=== PATIENT | female | born 1955 | race Caucasian/White ===

== ENCOUNTER → 2021-09-12 09:20 | Outpatient (CLI) | payer OTHER, SELFPAY ==
[2021-09-12 20:19] LABS: Add Manual Diff / Slide Review NO; Basophils Absolute Auto 100 /uL (0-100); Basophils Percent Auto 1.9 % (0-2); Eosinophils Absolute Auto 300 /uL (0-450); Eosinophils Percent Auto 6.9 % (2-4); Hematocrit 37.9 % (36-46); Hemoglobin 12.8 g/dL (12.0-16.0); Lymphocytes Absolute Auto 1500 /uL (1100-4500); Lymphocytes Percent Auto 33.2 % (25-40); Mean Corpuscular HGB Conc 33.7 % (30-36); Mean Corpuscular Hemoglobin 31.6 PG (26-34); Mean Corpuscular Volume 93.6 fL (80-100); Monocytes Absolute Auto 300 /uL (0-900); Monocytes Percent Auto 6.7 % (3-14); Neutrophils Absolute Auto 2300 /uL (1500-7000); Neutrophils Percent Auto 51.3 % (50-75); Platelet Count 168 X10^3/uL (150-400); Red Blood Cell Count 4.05 X10^6/uL (4.0-5.2); Red Cell Distribution Width 15.1 % (11.6-14.8); White Blood Cell Count 4.5 X10^3/uL (4.5-11.0)
[2021-09-12 20:26] LABS: Hemoglobin A1C% w Est Avg Glu 5.3 % (4.0-6.0)
[2021-09-12 20:56] LABS: TSH w/ Reflex to FT4 1.54 uIU/mL (0.47-4.68)
[2021-09-12 23:19] LABS: Alanine Aminotransferase 38 IU/L (<35); Albumin 4.1 g/dL (3.5-5.0); Albumin Globulin Ratio 1.9 (1.0-2.8); Alkaline Phosphatase 79 U/L (38-126); Aspartate Aminotransferase 35 IU/L (14-36); Bilirubin Total 1.1 mg/dL (0.2-1.3); Blood Urea Nitrogen 17 mg/dL (7-17); Calcium 9.3 mg/dL (8.4-10.2); Carbon Dioxide 33 mmol/L (22-32); Chloride 106 mmol/L (98-107); Estimated Glomerular Filt Rate > 60 mL/min (>60); Globulin 2.2 g/dL (1.7-4.1); Glucose 95 mg/dL (80-110); HEMOLYSIS < 15 (0-50); Potassium 4.5 mmol/L (3.4-5.1); Sodium 140 mmol/L (137-145); Total Protein 6.3 g/dL (6.3-8.2)
[2021-09-13 00:08] LABS: Vitamin B12 522 pg/mL (239-931)
== END ==
PROVIDERS: PCP Family Medicine; Visit Provider Physician Assistant
DX: M85.80 Other specified disorders of bone density and structure, unspecified site (principal); R63.5 Abnormal weight gain
CPT/HCPCS: 80053; 82607; 83036; 84443; 85025

== ENCOUNTER → 2022-01-20 10:48 | Outpatient (CLI) | payer OTHER, SELFPAY ==
--- NOTE | 2022-01-20 10:52 | DI.MRI.S_ITS ---
PROCEDURE: MR LOWER LEG LT WO/W CON INDICATIONS: deformity and change in sensation of left lower leg TECHNIQUE: Noncontrast coronal T1 spin echo and STIR, sagittal T1 spin echo with fat saturation and STIR, axial T1 spin echo and T2 fast spin echo with fat saturation. After the administration of contrast, axial/sagittal/coronal T1 spin echo with fat saturation through the left lower leg. COMPARISON: [facility] ([facility]), CR, XR TIBIA FIBULA LT 2V, 12/23/2021, 16:06. FINDINGS: Image quality: Excellent. Bones: The visualized bone marrow demonstrates normal signal on all sequences. The overlying cortex appears intact. No abnormal intraosseous enhancement. Tricompartmental degenerative changes are seen in the knee including full-thickness cartilage loss in the patellofemoral compartment. Soft tissues: Nonspecific subcutaneous edema is seen throughout the lower legs bilaterally, which may be related to dependent edema or a systemic process. Slightly more focal edema is seen at the anterior aspect of the lower leg adjacent to the skin marker. No enhancing mass is seen. Small left knee effusion. Trace medial popliteal cyst. The scanned muscles demonstrate normal overall bulk and internal signal. IMPRESSION: Focal nonspecific subcutaneous edema is seen adjacent to the skin marker at the anterior aspect of the lower leg without abnormal contrast enhancement or soft tissue mass. Background nonspecific generalized subcutaneous edema is seen throughout the bilateral lower extremities that may be dependent or related to a systemic process. Dictated by: Harvey Ham M.D. on 01/21/2022 at 8:42 Approved by: Harvey Ham M.D. on 01/21/2022 at 8:59
== END ==
PROVIDERS: PCP Physician Assistant; Referring Provider Physician Assistant; Visit Provider Physician Assistant
DX: M21.962 Unspecified acquired deformity of left lower leg (principal)
CPT/HCPCS: 73720

== ENCOUNTER → 2022-11-27 12:22 | Outpatient (CLI) | payer OTHER, SELFPAY ==
--- NOTE | 2022-11-27 | DI.MG.S_ITS ---
BILATERAL DIGITAL SCREENING MAMMOGRAM 3D/2D WITH CAD: 11/27/2022 CLINICAL: Routine screening. Comparison is made to exams dated: 08/22/2020 mammogram, 01/24/2019 mammogram, and 09/17/2017 mammogram - outside location. Both breasts are heterogeneously dense, which may obscure small masses (category c / 51-75% glandular tissue). Current study was also evaluated with a Computer Aided Detection (CAD) system. No significant masses, calcifications, or other findings are seen in either breast. IMPRESSION: NEGATIVE There is no mammographic evidence of malignancy. A 1 year screening mammogram is recommended. Based on the Tyrer Cuzick model (a risk assessment model) the patient's lifetime risk is 7.6% and her 10 year risk is 4.2%. According to the ACR, ACS, and NCCN guidelines, an annual breast MRI exam along with mammogram is recommended if the patient's lifetime risk is 20% or greater. This exam was interpreted at Station ID: [id number]. NOTE: For mammograms, a report in lay terms will be sent to the patient. Approximately 15% of breast malignancies will not be visualized mammographically. In the management of a palpable breast mass, a negative mammogram must not discourage biopsy of a clinically suspicious lesion. Electronically Signed By: Charlene mendoza/merry:11/27/2022 14:30:49 letter sent: Normal Exam ACR BI-RADS Category 1: Negative 3341F
== END ==
PROVIDERS: PCP Family Medicine; Referring Provider Family Medicine; Visit Provider Family Medicine
DX: Z12.31 Encounter for screening mammogram for malignant neoplasm of breast (principal)
CPT/HCPCS: 77063; 77067

== ENCOUNTER → 2022-12-11 09:26 | Outpatient (CLI) | payer OTHER, SELFPAY | PROVIDERS: PCP Family Medicine; Visit Provider Physician Assistant Medical | DX: N39.0 Urinary tract infection, site not specified (principal) | CPT/HCPCS: 87077; 87086; 87186 ==

== ENCOUNTER → 2023-01-26 08:11 | Outpatient (CLI) | payer OTHER, MEDICARE, SELFPAY ==
--- NOTE | 2023-01-26 08:18 | DI.MRI.S_ITS ---
PROCEDURE: MR LUMBAR SPINE WO CON INDICATIONS: pain TECHNIQUE: Noncontrast sagittal T1 spin echo and T2 fast echo, sagittal STIR, and T2 fast spin echo through the lumbar spine. In cases with scoliosis, additional coronal T2 fast spin echo may be performed. COMPARISON: None. FINDINGS: Image quality: Excellent. Alignment and Curvature: There is mild, approximately 6 millimeters of L3-L4 anterolisthesis secondary to facet hypertrophy. Mild convex right scoliosis Bone Marrow: Modic type 2 reactive endplate changes noted adjacent to the L2-L3 disc. No acute vertebral body compression fractures. Spinal Cord: Conus medullaris terminates at the L1 level. Visualized cord demonstrates normal signal and size. Paraspinous Soft Tissues: No paravertebral masses. T12-L1: Loss of disc signal and height. Moderate, diffuse disc bulge. Right central/light foraminal disc protrusion. Mild narrowing of the central canal. Moderate right neural foraminal narrowing. No neural compression. L1-L2: Loss of disc signal and height. Mild, diffuse disc bulge. Mild narrowing of the central canal. Mild bilateral neural foraminal narrowing. No neural compression L2-L3: Loss of disc signal and height. Mild to moderate diffuse disc bulge. Mild bilateral facet hypertrophy. Moderate narrowing of the central canal. Mild right and severe left neural foraminal narrowing with compression of the exiting left L2 nerve root. L3-L4: Loss of disc signal and height. Moderate, diffuse disc bulge. Moderate bilateral facet hypertrophy. Moderate ligamentum flavum hypertrophy. Severe narrowing of the central canal with compression of the traversing nerve roots of the cauda equina. Moderate right and severe left neural foraminal narrowing with compression of the exiting left L3 nerve root. L4-L5: Loss of disc signal. Mild, diffuse disc bulge. Moderate bilateral facet hypertrophy. Moderate narrowing of the central canal. Moderate bilateral neural foraminal narrowing. No neural compression. L5-S1: Loss of disc signal. Minimal, diffuse disc bulge. Moderate right and mild left facet hypertrophy. No central stenosis. Moderate right neural foraminal narrowing. No neural compression. IMPRESSION: Grade 1 L3-L4 degenerative spondylolisthesis. Mild convex right lumbar spine scoliosis. Multilevel degenerative disc disease. Multilevel facet arthropathy. Severe L3-L4 central canal narrowing with compression of the traversing nerve roots of the cauda equina. Severe left L2-L3 and L3-L4 neural foraminal narrowing with compression of the exiting left L2 and left L3 nerve roots. Dictated by: Christine Martin MD, PhD on 01/26/2023 at 13:43 Approved by: Christine Martin MD, PhD on 01/26/2023 at 13:47
== END ==
PROVIDERS: PCP Physician Assistant Medical; Referring Provider Physician Assistant Medical; Visit Provider Physician Assistant Medical
DX: M43.16 Spondylolisthesis, lumbar region (principal); M41.9 Scoliosis, unspecified; M51.16 Intervertebral disc disorders with radiculopathy, lumbar region; M47.26 Other spondylosis with radiculopathy, lumbar region; M47.27 Other spondylosis with radiculopathy, lumbosacral region; M48.061 Spinal stenosis, lumbar region without neurogenic claudication
CPT/HCPCS: 72148